=== PATIENT | female | born 1965 | race Caucasian/White ===

== ENCOUNTER 2019-06-03 18:07 | Inpatient (IN) | payer OTHER ==
[2019-06-03 18:24] VITALS: BMI 21.7
--- NOTE | 2019-06-03 21:17 | HP ---
CIWA Score Nausea/Vomitin (vcomiting x 2) Muscle Tremors: 5 Anxiety: 4-Mod. Anxious/Guarded Agitation: 4-Moderately Restless Paroxysmal Sweats: 2 Orientation: 0-Oriented Tacttile Disturbances: 0-None Auditory Disturbances: 0-None Visual Disturbances: 0-None Headache: 2-Mild CIWA-Ar Total Score: 20 - Admission Criteria OASAS Guidelines: Admission for Medically Managed Detox: Requires at least one of the followin. CIWA greater than 12 2. Seizures within the past 24 hours 3. Delirium tremens within the past 24 hours 4. Hallucinations within the past 24 hours 5. Acute intervention needed for co occurring medical disorder 6. Acute intervention needed for co occurring psychiatric disorder 7. Severe withdrawal that cannot be handled at a lower level of care (continued vomiting, continued diarrhea, abnormal vital signs) requiring intravenous medication and/or fluids 8. Admission ROS [facility] - [facility] Chief Complaint: Alcohol withdrawal symptoms Allergies/Adverse Reactions: Allergies Allergy/AdvReac Type Severity Reaction Status Date / Time No Known Allergies Allergy Verified 06/03/19 18:12 History of Present Illness: 53 years old female with a long history of alcohol dependence (since age 15) is seeking admission to detox. This is her first admission to [facility]. She was referred from [facility]. She has medical history of GERD, anemia and psych. history of depression. She denies suicide attempt and suicidal ideation at this time. Patient reports blackouts from drinking, last incidence was about a year ago. Exam Limitations: No Limitations - Ebola screening Have you traveled outside of the country in the last 21 days: No (N) Have you had contact with anyone from an Ebola affected area: No Do you have a fever: No - Review of Systems Constitutional: Chills, Malaise, Night Sweats, Changes in sleep EENT: reports: No Symptoms Reported Respiratory: reports: No Symptoms reported, Productive cough GI: reports: Diarrhea (x 5), Nausea, Poor Appetite, Poor Fluid Intake, Vomiting , Abdominal cramping : reports: No Symptoms Reported Musculoskeletal: reports: Joint Pain, Neck Pain Integumentary: reports: Dryness, Flushing Neuro: reports: Tremors Endocrine: reports: No Symptoms Reported Hematology: reports: No Symptoms Reported Psychiatric: reports: Mood/Affect Appropiate, Orientated x3, Anxious, Depressed Other Systems: Reviewed and Negative Patient History - Patient Medical History Hx Anemia: Yes Hx Asthma: No Hx Chronic Obstructive Pulmonary Disease (COPD): No Hx Cancer: No Hx Cardiac Disorders: No Hx Congestive Heart Failure: No Hx Hypertension: No Hx Hypercholesterolemia: No Hx Pacemaker: No HX Cerebrovascular Accident: No Hx Seizures: No Hx Dementia: No Hx Diabetes: No Hx Gastrointestinal Disorders: Yes (GERD) Hx Liver Disease: No Hx Genitourinary Disorders: No Hx Sexually Transmitted Disorders: No Hx Renal Disease (ESRD): No Hx Thyroid Disease: No Hx Human Immunodeficiency Virus (HIV): No (Negative ) Hx Hepatitis C: No Hx Depression: Yes (Not on medication) Hx Suicide Attempt: No (Denies suicidal ideation at this time) Hx Bipolar Disorder: No Hx Schizophrenia: No - Patient Surgical History Past Surgical History: Yes Hx Neurologic Surgery: No Hx Cataract Extraction: No Hx Cardiac Surgery: No Hx Lung Surgery: No Hx Breast Surgery: No Hx Breast Biopsy: No Hx Abdominal Surgery: No Hx Appendectomy: No Hx Cholecystectomy: No Hx Genitourinary Surgery: No Hx Section: Yes (1982) Hx Orthopedic Surgery: No Hx Hysterectomy: No Anesthesia Reaction: No - PPD History 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 History Hx Alcohol Use: Yes Hx Substance Use: No Substance Use Type: Alcohol Hx Substance Use Treatment: Yes ([facility]) - Substances abused Alcohol Substance route: Oral Frequency: Daily Amount used: liquor- 2 pint Age of first use: 15 Date of last use: 06/03/19 Admission Physical Exam [facility] - Vital Signs Vital Signs: Vital Signs - 24 hr 06/03/19 18:10 Temperature 97.6 F Pulse Rate 117 H Respiratory 18 Rate Blood Pressure 144/88 - Physical General Appearance: Yes: Moderate Distress HEENTM: Yes: Within Normal Limits Respiratory: Yes: Normal Breath Sounds, No Respiratory Distress Neck: Yes: Supple Breast: Yes: Within Normal Limits Cardiology: Yes: Tachycardia Abdominal: Yes: Normal Bowel Sounds, Soft Genitourinary: Yes: Within Normal Limits Back: Yes: Normal Inspection Musculoskeletal: Yes: Muscle Pain Extremities: Yes: Tremors Neurological: Yes: Within Normal Limits, Alert, Normal Mood/Affect Integumentary: Yes: Warm Lymphatic: Yes: Within Normal Limits - Diagnostic (1) Alcohol dependence with withdrawal, uncomplicated Current Visit: Yes Status: Acute (2) GERD (gastroesophageal reflux disease) Current Visit: Yes Status: Chronic Qualifiers: Esophagitis presence: esophagitis presence not specified Qualified Code(s) : K21.9 - Gastro-esophageal reflux disease without esophagitis Cleared for Admission S - Detox or Rehab [facility] Level of Care: Medically Managed Detox Regimen/Protocol: Librium Breathalyzer - Breathalyzer Breathalyzer: 0.103 Inpatient Rehab Admission - Rehab Decision to Admit Inpatient rehab admission?: No
[2019-06-03] MEDS ORDERED: IBUPROFEN 400 MG TABLET (FP) PO PRN (21:27)
[2019-06-03] MEDS ORDERED: MENTHOL/PHENOL 1 EACH UD MM PRN (21:27)
[2019-06-03] MEDS ORDERED: MAGNESIUM HYDROX 2400MG/30ML ORAL SUSPENSION 30 ML CUP PO PRN (21:27)
[2019-06-03] MEDS ORDERED: METHOCARBAMOL 500 MG TABLET PO PRN (21:27)
[2019-06-03] MEDS ORDERED: MAGNESIUM CITRATE 300 ML BOTTLE PO PRN (21:27)
[2019-06-03] MEDS ORDERED: hydrOXYzine PAMOATE 25 MG CAPSULE (FP) PO PRN (21:27)
[2019-06-03] MEDS ORDERED: MAG HYDROX/AL HYDROX/SIMETH 30 ML UNIT-DOSE CUP PO PRN (21:27)
[2019-06-03] MEDS ORDERED: chlordiazePOXIDE HCL 25 MG CAPSULE PO PRN (21:27)
[2019-06-03] MEDS ORDERED: MELATONIN 5 MG TABLETS PO PRN (21:27)
[2019-06-03] MEDS ORDERED: ACETAMINOPHEN 325 MG TABLET (FP) PO PRN ×2 (21:27)
[2019-06-03] MEDS ORDERED: BISMUTH SUBSALICYLATE 524 MG/30 ML UD PO PRN (21:27)
[2019-06-03] MEDS: THIAMINE HCL 100 MG TABLET (FP) PO SCH (23:04)
[2019-06-03] MEDS: chlordiazePOXIDE HCL 25 MG CAPSULE PO SCH (23:04)
[2019-06-04] MEDS: chlordiazePOXIDE HCL 25 MG CAPSULE PO SCH ×4 (05:39→22:28)
[2019-06-04 09:52] LABS: HEMATOCRIT 38.9 % (32.4-45.2); HEMOGLOBIN 12.8 GM/dL (10.7-15.3); MCH 30.3 pg (25.7-33.7); MCHC 32.9 g/dl (32.0-36.0); MEAN CELL VOLUME 91.9 fl (80-96); MEAN PLT VOLUME 8.5 fl (7.5-11.1); PLATELET COUNT 223 K/MM3 (134-434); RBC 4.23 M/mm3 (3.60-5.2); RDW 15.5 % (11.6-15.6); WHITE BLOOD COUNT 5.1 K/mm3 (4.0-10.0)
[2019-06-04 09:59] LABS: ALBUMIN 3.6 g/dl (3.4-5.0); BILIRUBIN,TOTAL 0.8 mg/dL (0.2-1); BLOOD UREA NITROGEN 6.2 mg/dL (7-18); CALCIUM 9.2 mg/dL (8.5-10.1); CREATININE 0.5 mg/dL (0.55-1.3); POTASSIUM 3.6 mmol/L (3.5-5.1)
[2019-06-04] MEDS ORDERED: PRENATAL VITAMINS W/ FOLIC ACID TABLET (FP) PO SCH (10:00)
[2019-06-04] MEDS ORDERED: amLODIPine BESYLATE 10 MG TABLET (FP) PO SCH (10:06)
--- NOTE | 2019-06-04 10:08 | EKG ---
Test Reason : Blood Pressure : / mmHG Vent. Rate : 096 BPM Atrial Rate : 096 BPM P-R Int : 124 ms QRS Dur : 080 ms QT Int : 362 ms P-R-T Axes : 047 050 056 degrees QTc Int : 457 ms NORMAL SINUS RHYTHM MINIMAL VOLTAGE CRITERIA FOR LVH, MAY BE NORMAL VARIANT BORDERLINE ECG NO PREVIOUS ECGS AVAILABLE Confirmed by TIP STUBBS MD ([id number]) on 06/04/2019 10:08:37 AM Referred By: Edgar Hernandez Confirmed By:TIP STUBBS MD
[2019-06-04] MEDS ORDERED: cloNIDine HCL 0.1 MG TABLET PO PRN (10:10)
--- NOTE | 2019-06-04 10:16 | PN ---
S CIWA - CIWA Score Nausea/Vomitin-Mild Nausea/No Vomiting Muscle Tremors: 3 Anxiety: 3 Agitation: 2 Paroxysmal Sweats: 3 Orientation: 1-Uncertain about Date Tacttile Disturbances: 0-None Auditory Disturbances: 0-None Visual Disturbances: 0-None Headache: 2-Mild CIWA-Ar Total Score: 15 S Progress Note (SOAP) Subjective: 53 years old female admitted on 06/03/19 for alcohol withdrawal sx management treating with librium detox regimen patient is tolerated well reports longest sobriety 3 years relapse due to boyfriend left and holiday evants denies history of hypertension "some times high" begin amlodipine 10 mg po daily and clonidine 0.1mg po prn Objective: 06/04/19 10:15 Vital Signs Temperature 97.2 F L 06/04/19 09:12 Pulse Rate 92 H 06/04/19 09:12 Respiratory Rate 20 06/04/19 09:12 Blood Pressure 154/94 06/04/19 09:12 O2 Sat by Pulse Oximetry (%) Laboratory Last Values WBC 5.1 K/mm3 (4.0-10.0) 06/04/19 08:15 RBC 4.23 M/mm3 (3.60-5.2) 06/04/19 08:15 Hgb 12.8 GM/dL (10.7-15.3) 06/04/19 08:15 Hct 38.9 % (32.4-45.2) 06/04/19 08:15 MCV 91.9 fl (80-96) 06/04/19 08:15 MCH 30.3 pg (25.7-33.7) 06/04/19 08:15 MCHC 32.9 g/dl (32.0-36.0) 06/04/19 08:15 RDW 15.5 % (11.6-15.6) 06/04/19 08:15 Plt Count 223 K/MM3 (134-434) 06/04/19 08:15 MPV 8.5 fl (7.5-11.1) 06/04/19 08:15 Sodium 137 mmol/L (136-145) 06/04/19 08:15 Potassium 3.6 mmol/L (3.5-5.1) 06/04/19 08:15 Chloride 99 mmol/L (98-107) 06/04/19 08:15 Carbon Dioxide 30 mmol/L (21-32) 06/04/19 08:15 Anion Gap 8 MMOL/L (8-16) 06/04/19 08:15 BUN 6.2 mg/dL (7-18) L 06/04/19 08:15 Creatinine 0.5 mg/dL (0.55-1.3) L 06/04/19 08:15 Est GFR (CKD-EPI)AfAm 127.17 06/04/19 08:15 Est GFR (CKD-EPI)NonAf 109.72 06/04/19 08:15 Random Glucose 81 mg/dL (74-106) 06/04/19 08:15 Calcium 9.2 mg/dL (8.5-10.1) 06/04/19 08:15 Total Bilirubin 0.8 mg/dL (0.2-1) 06/04/19 08:15 AST 59 U/L (15-37) H 06/04/19 08:15 ALT 62 U/L (13-61) H 06/04/19 08:15 Alkaline Phosphatase 86 U/L (45-117) 06/04/19 08:15 Total Protein 7.0 g/dl (6.4-8.2) 06/04/19 08:15 Albumin 3.6 g/dl (3.4-5.0) 06/04/19 08:15 lab noted 06/04/19 10:16 bp elevation denies chest pain denies blurred vision Assessment: 06/04/19 10:15 alcohol withdrawal hypertension Plan: librium regimen amlodipine 10 mg po daily with clonidine prn
[2019-06-04] MEDS ORDERED: FLU VACCINE QUAD 60 MCG/0.5 ML (MDV 19-20) IM ONE (12:00)
[2019-06-04] MEDS ORDERED: chlordiazePOXIDE HCL 25 MG CAPSULE PO ONE (14:00)
--- NOTE | 2019-06-04 16:00 | CONSULT ---
[facility] Psychiatric Consult - Data Date of interview: 06/04/19 Admission source: [facility] Identifying data: First visit to [facility] and admission to [address] [place] [address] for this 53 y/o [place] female referred fron [facility] for detoxification treatment. ELVIS issue : alcohol. Patient is single, mother of one, domiciled ( lives with her 74 y/o biological mother) and currently employed. Substance Abuse History: Discussed with the patient. Details in current [facility] report as follows : Smoking history: Never smoked. Have you smoked in the past 12 months: No. Hx Chewing Tobacco Use: No. Initiated information on smoking cessation: No. - Substance & Tx. History. Hx Alcohol Use: Yes. Hx Substance Use: No. Substance Use Type: Alcohol. Hx Substance Use Treatment: Yes ([facility]). - Substances abused. Alcohol. Substance route: Oral. Frequency: Daily. Amount used: liquor- 2 pint. Age of first use: 15. Date of last use: 06/03/19 Medical History: Medical profile is remarkable for GERD, anemia, antecedent of one section, and positive PPD status. Psychiatric History: Patient denies history of psychiatric hospitalizations. Ms Egan has been connected with [facility] for the past five years. She sees a therapist at the [facility] outpatient program ([facility]). Not on psychotropic medications. Patient denies history of suicide attempts. Physical/Sexual Abuse/Trauma History: Stressors : break-up of a romantic relationship, inability to live in own apartment (financial difficulties), frequent quarrels with her elderly mother and alcohol addiction. Additional Comment: No toxicology available for review. Mental Status Exam - Mental Status Exam Alert and Oriented to: Time, Place, Person Cognitive Function: Good Patient Appearance: Well Groomed Mood: Nervous, Withdrawn, Anxious Affect: Mood Congruent, Constricted Patient Behavior: Fatigued, Appropriate, Cooperative Speech Pattern: Clear (speaks fair chinese), Appropriate Voice Loudness: Normal Thought Process: Intact, Goal Oriented Thought Disorder: Not Present Hallucinations: Denies Suicidal Ideation: Denies Homicidal Ideation: Denies Insight/Judgement: Fair Sleep: Fair Appetite: Good Gait/Station: Normal Psychiatric Findings - Problem List ([place] 1, 2,3) (1) Alcohol dependence with withdrawal, uncomplicated Current Visit: Yes Status: Acute (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 Sleep hygiene. Detoxification. Support. AA meetings. MAT services explained to patient. Groups. Observation.
[2019-06-04] MEDS: THIAMINE HCL 100 MG TABLET (FP) PO SCH (22:28)
[2019-06-05] MEDS ORDERED: chlordiazePOXIDE HCL 25 MG CAPSULE PO SCH (05:00)
[2019-06-05 09:28] VITALS: BP 142/99; PULSE 106; TEMP 98.3
--- NOTE | 2019-06-05 14:09 | DS ---
[facility] Detox Discharge Summary Admission Date: 06/03/19 Discharge Date: 06/05/19 - History Present History: Alcohol Dependence Additional Comments: 53 years old female admitted on 06/03/19 for alcohol withdrawal sx management treated with librium detox regimen patient tolerated well alert oriented x 3 speech clearly coherently ambulating steady gait patient insists to leave the detox unit that "my parents are coming from [place] to stay with me" case discussed with the nurse against medical advice is appropriated reports visiting primary care provider regularly for bp monitoring "have some at home" Pertinent Past History: patient had few spike bp elevation managed by clonidine and amlodipine strong recommend the patient return to primary care provider for antihypertensant patient reports that she does not have elevation of the bp but only during alcohol withdrawal appreciates the benefits of antihypertensant that bp needs to be monitored accordingly patient may return to primary care provider for dosage adjustment - Physical Exam Results Vital Signs: Vital Signs Temperature 98.3 F 06/05/19 09:27 Pulse Rate 106 H 06/05/19 09:27 Respiratory Rate 18 06/05/19 09:27 Blood Pressure 142/99 06/05/19 09:27 O2 Sat by Pulse Oximetry (%) Pertinent Admission Physical Exam Findings: alcohol withdrawal Laboratory Last Values WBC 5.1 K/mm3 (4.0-10.0) 06/04/19 08:15 RBC 4.23 M/mm3 (3.60-5.2) 06/04/19 08:15 Hgb 12.8 GM/dL (10.7-15.3) 06/04/19 08:15 Hct 38.9 % (32.4-45.2) 06/04/19 08:15 MCV 91.9 fl (80-96) 06/04/19 08:15 MCH 30.3 pg (25.7-33.7) 06/04/19 08:15 MCHC 32.9 g/dl (32.0-36.0) 06/04/19 08:15 RDW 15.5 % (11.6-15.6) 06/04/19 08:15 Plt Count 223 K/MM3 (134-434) 06/04/19 08:15 MPV 8.5 fl (7.5-11.1) 06/04/19 08:15 Sodium 137 mmol/L (136-145) 06/04/19 08:15 Potassium 3.6 mmol/L (3.5-5.1) 06/04/19 08:15 Chloride 99 mmol/L (98-107) 06/04/19 08:15 Carbon Dioxide 30 mmol/L (21-32) 06/04/19 08:15 Anion Gap 8 MMOL/L (8-16) 06/04/19 08:15 BUN 6.2 mg/dL (7-18) L 06/04/19 08:15 Creatinine 0.5 mg/dL (0.55-1.3) L 06/04/19 08:15 Est GFR (CKD-EPI)AfAm 127.17 06/04/19 08:15 Est GFR (CKD-EPI)NonAf 109.72 06/04/19 08:15 Random Glucose 81 mg/dL (74-106) 06/04/19 08:15 Calcium 9.2 mg/dL (8.5-10.1) 06/04/19 08:15 Total Bilirubin 0.8 mg/dL (0.2-1) 06/04/19 08:15 AST 59 U/L (15-37) H 06/04/19 08:15 ALT 62 U/L (13-61) H 06/04/19 08:15 Alkaline Phosphatase 86 U/L (45-117) 06/04/19 08:15 Total Protein 7.0 g/dl (6.4-8.2) 06/04/19 08:15 Albumin 3.6 g/dl (3.4-5.0) 06/04/19 08:15 RPR Titer Nonreactive (NONREACTIVE) 06/04/19 08:15 lab noted - Treatment Hospital Course: Detox Protocol Followed Patient has Accept[facility] - Medication Discharge Medications: Ambulatory Orders Ranitidine HCl [[employer]] 75 mg PO DAILY 06/03/19 - Diagnosis (1) Alcohol dependence with withdrawal, uncomplicated Status: Acute (2) GERD (gastroesophageal reflux disease) Status: Chronic Qualifiers: Esophagitis presence: esophagitis presence not specified Qualified Code(s) : K21.9 - Gastro-esophageal reflux disease without esophagitis (3) Elevated blood pressure reading Status: Chronic - AMA Did Patient Leave Against Medical Advice: Yes
[2019-06-06] MEDS ORDERED: chlordiazePOXIDE HCL 10 MG CAPSULE PO PRN
[2019-06-06] MEDS ORDERED: chlordiazePOXIDE HCL 10 MG CAPSULE PO SCH (05:00)
[2019-06-07] MEDS ORDERED: chlordiazePOXIDE HCL 10 MG CAPSULE PO SCH (05:00)
[2019-06-08] MEDS ORDERED: chlordiazePOXIDE HCL 10 MG CAPSULE PO ONE (05:00)
== END 2019-06-05 10:53 | disposition left against medical advice (07) | DRG 894 ==
LOC: YASAS 18:07 → Y3N 21:50
PROVIDERS: ADMIT Allergy & Immunology; ATTEND Allergy & Immunology
PROC: HZ2ZZZZ Detoxification Services for Substance Abuse Treatment (ICD-10-PCS; principal; 2019-06-03)
DX: F10.230 Alcohol dependence with withdrawal, uncomplicated (principal); F10.280 Alcohol dependence with alcohol-induced anxiety disorder; F43.21 Adjustment disorder with depressed mood; I10 Essential (primary) hypertension; K21.9 Gastro-esophageal reflux disease without esophagitis
CPT/HCPCS: 36415; 71046-TC-FY; 80053; 85027; 86593; 93005; 93010